=== PATIENT | female | born 1955 | race Caucasian/White ===

== ENCOUNTER 2019-02-08 08:29 | Day surgery (SDC) | payer MEDICAID ==
[~2019-02-08 08:29] MED LIST: Midazolam 1 MG/ML 2 ML SDV ONE; Propofol 200 MG/20 ML SDV ONE; fentaNYL 100 MCG/2 ML SDV ONE
[2019-02-08] MEDS ORDERED: Dextrose 5%-Lactated Ringers 1,000 ML IV SCH (09:30)
--- NOTE | 2019-02-16 00:15 | OR ---
DATE OF PROCEDURE: 02/08/2019 PREOPERATIVE DIAGNOSIS: History of colon polyps. POSTOPERATIVE DIAGNOSIS: Followup colonoscopy with no identified pathology. OPERATIVE PROCEDURE: Flexible colonoscopy. ANESTHESIA: IV sedation. INDICATION FOR PROCEDURE: The patient presents for a followup colonoscopy having history of previous colon polyps. Plan is to proceed with colonoscopy with biopsies and/or polypectomy as indicated. Potential risks including bleeding and perforation were discussed and the patient wishes to proceed. DETAILS OF PROCEDURE: The patient was taken to the operating room and placed in a left lateral decubitus position. IV sedation was administered after which the initial digital rectal exam was performed, it was unremarkable. The colonoscope was passed into the rectum with retroflexion revealing uncomplicated hemorrhoidal columns. The scope was eventually passed to the level of the cecum. The prep was fairly good with only a small amount of liquid stool being present. To that level, no pathology was seen. There were no diverticula, no areas of colitis, no signs of polyps, no evidence of neoplasia. The scope was then withdrawn and the above findings were reconfirmed and the procedure was then concluded. Given the patient's history of colon polyps, recommendation would be to repeat colonoscopy in 5 years. Milan Diez MD /[id number]
== END 2019-02-08 11:55 | disposition home or self-care (01) ==
LOC: JP.SDS 08:29
PROVIDERS: ATTEND Surgery
DX: Z12.11 Encounter for screening for malignant neoplasm of colon (principal); K64.9 Unspecified hemorrhoids; I10 Essential (primary) hypertension; E03.9 Hypothyroidism, unspecified; F32.9 Major depressive disorder, single episode, unspecified; G47.33 Obstructive sleep apnea (adult) (pediatric); Z86.010 Personal history of colon polyps
CPT/HCPCS: 45378; J2250; J2704; J3010; J7042

== ENCOUNTER 2019-10-21 07:17 | Day surgery (SDC) | payer MEDICAID ==
[2019-10-21] MEDS ORDERED: Propofol 200 MG/20 ML SDV ONE (07:21)
[2019-10-21] MEDS ORDERED: Midazolam 1 MG/ML 2 ML SDV ONE (07:21)
[2019-10-21] MEDS ORDERED: fentaNYL 100 MCG/2 ML SDV ONE (07:21)
[2019-10-21] MEDS ORDERED: Sodium Chloride 0.9% 1,000 ML IV SCH (07:45)
[2019-10-21] MEDS ORDERED: fentaNYL 100 MCG/2 ML SDV IVPUSH ONE (09:06)
[2019-10-21] MEDS ORDERED: hydrOXYzine HCL 100 MG/2 ML SDV IM ONE (09:06)
--- NOTE | 2019-10-21 10:45 | OR ---
DATE OF PROCEDURE: 10/21/2019 SURGEON: Kishor Lemos MD PROCEDURES: 1. Colonoscopy. 2. Hemorrhoid banding. COMPLICATIONS: None. TRANSPORTATION LOGISTICS INTERNSHIP: None. PREOPERATIVE DIAGNOSIS: Gastrointestinal bleeding. POSTOPERATIVE DIAGNOSIS: Gastrointestinal bleeding. FINDINGS: Mild inflammation of rectum and hemorrhoids (biopsied using cold biopsy forceps). RISKS: Risks, benefits, alternatives, and limitations including, but not limited to infection, bleeding, and perforation were explained to the patient, who wished to proceed. We also discussed chronic pain, banding issues, and other risks not listed here. PROCEDURE IN DETAIL: The patient was placed in left lateral decubitus position. Digital rectal exam was performed without abnormality. Scope was introduced and advanced atraumatically to the ileocecal valve. Scope was brought back through the ascending, transverse, descending colon, and retroflexed. No evidence of old or new blood. No masses. No polyps. The patient did have some inflammation of the rectum, which was biopsied using cold biopsy forceps. There was also some problem with primary hemorrhoid which was banded x2. The patient tolerated the procedure well. Kishor Lemos MD /[id number]
== END 2019-10-21 11:06 | disposition home or self-care (01) ==
LOC: JP.SDS 07:17
PROVIDERS: ATTEND Surgery
DX: K62.89 Other specified diseases of anus and rectum (principal); K64.9 Unspecified hemorrhoids; K76.6 Portal hypertension; I27.20 Pulmonary hypertension, unspecified
CPT/HCPCS: 45380; 46221; 88305; J2250; J2704; J3010; J3410; J7030